=== PATIENT | female | born 1995 | race Asian ===

== ENCOUNTER 2021-11-03 05:30 | Inpatient (IN) ==
[2021-11-03] MEDS ORDERED: ONDANSETRON 4 MG/2 ML VIAL IV PRN (06:10)
[2021-11-03] MEDS ORDERED: LACTATED RINGERS 1,000 ML IV PRN (06:10)
[2021-11-03 06:50] LABS: Basophils # 0.1 10*3/uL (0.0-0.2); Basophils % 0.7 % (0.0-0.8); Eosinophils # 0.2 10*3/uL (0.0-0.87); Eosinophils % 1.8 % (0.00-10.9); Hematocrit 36.5 VOL% (35.7-47.0); Immature Granulocytes Absolute 0.11 #; Lymphocytes # 3.1 10*3/uL (1.4-4.0); Lymphocytes % 26.8 % (21.3-54.2); Mean Corpuscular HGB Conc 32.9 GM/DL (32-36); Mean Corpuscular Volume 97.6 FL (87-102); Mean Platelet Volume 12.1 FL (9.6-12.0); Monocytes % 9.4 % (1.7-12.7); Neutrophils % 60.3 % (38.7-73.9); Platelet Count 203 T/CUMM (130-400); Red Blood Count 3.74 MC/CUMM (3.8-5.5); Red Cell Distribution Width 12.4 % (9.3-17.3); White Blood Count 11.5 T/CUMM (4-12)
[2021-11-03] MEDS ORDERED: OXYTOCIN/LR 20 UNIT/1,000 ML BAG IV SCH (07:00)
[2021-11-03 07:15] LABS: Alanine Aminotransferase 14 U/L (13-56); Albumin 2.6 G/DL (3.4-5.0); Alkaline Phosphatase 120 U/L (45-117); Aspartate Amino Transferase 16 U/L (0-37); Bilirubin,Total < 0.39 MG/DL (0.20-1.00); Blood Urea Nitrogen 5 MG/DL (7-18); Calcium 8.3 MG/DL (8.5-10.1); Carbon Dioxide 22 MMOL/L (21-32); Estimated Glom Filtration Rate 150 ML/MIN; Glucose 80 MG/DL (74-106); Osmolality,Calculated 268.8 MOS/KG (273-304); Potassium 3.7 MMOL/L (3.5-5.1); Sodium 137 MMOL/L (136-145); Total Protein 6.2 G/DL (6.4-8.2)
[2021-11-03] MEDS ORDERED: LACTATED RINGERS 1,000 ML IV SCH (08:00)
[2021-11-03] MEDS ORDERED: BUTORPHANOL 2 MG/ML VIAL IV PRN (08:46)
[2021-11-03] MEDS ORDERED: MEPERIDINE 50 MG/1 ML VIAL IV PRN (08:46)
[2021-11-03 12:13] LABS: Bacteria,Urine Occasional /HPF (Few); Mucus,Urine Occasional /LPF (Occasional); RBC,Urine 1 /HPF (0-4)
[2021-11-03 12:14] LABS: Bilirubin,Urine Negative (Negative); Blood, Urine Negative (Negative); Glucose,Urine (UA) Negative (Negative); Ketones,Urine Negative (Negative); Nitrite,Urine Negative (Negative); Protein,Urine Negative; Urine Appearance Clear (Clear); Urine Color Yellow (Yellow); Urine Specific Gravity 1.015 (1.001-1.035); Urine Urobilinogen 0.2 EU/DL (<2.0); Urine pH 7.5 (4.5-8.0)
[2021-11-03] MEDS ORDERED: TRANEXAMIC ACID 1,000 MG/10 ML VIAL ONE (12:45)
[2021-11-03] MEDS ORDERED: SODIUM CHLORIDE 0.9% 0 ML IV ONE (12:45)
[2021-11-03] MEDS ORDERED: miSOPROStoL 200 MCG TABLET ONE (12:45)
[2021-11-03] MEDS ORDERED: METHYLERGONOVINE 0.2 MG/1 ML AMP ONE (12:46)
[2021-11-03] MEDS ORDERED: CARBOPROST TROMETHAMINE 250 MCG/ML AMP IM ONE (12:46)
[2021-11-03] MEDS ORDERED: CITRIC ACID/SODIUM CITRATE 30 ML UDCUP ONE (13:04)
[2021-11-03] MEDS ORDERED: ePHEDrine 50 MG/ML VIAL ONE (13:04)
[2021-11-03] MEDS ORDERED: fentaNYL 2 MCG/ROPIV 0.2% EPID 0 ML EPIDURAL ONE (13:05)
[2021-11-03] MEDS ORDERED: FAMOTIDINE 20 MG/2 ML VIAL IV ONE ×2 (13:06→13:40)
[2021-11-03] MEDS ORDERED: CITRIC ACID/SODIUM CITRATE 30 ML UDCUP PO ONE (13:40)
[2021-11-03 13:57] LABS: Cord Venous Blood HCO3 23.7 MMOL/L; Cord Venous Blood PCO2 41.1 MMHG; Cord Venous Blood PO2 35.5
[2021-11-03] MEDS ORDERED: BENZOCAINE 20%/MENTHOL 0.5% SPRAY 56 GM CAN TOP PRN (15:09)
[2021-11-03] MEDS ORDERED: OXYTOCIN/LR 20 UNIT/1,000 ML BAG IV ONE (15:09)
[2021-11-03] MEDS ORDERED: HYDROCORTISONE 2.5% RECTAL CREAM 30 GM TUBE TOP PRN (15:09)
[2021-11-03] MEDS ORDERED: oxyCODONE/ACETAMINOPHEN 5-325 MG TABLET PO PRN ×2 (15:09)
[2021-11-03] MEDS ORDERED: IBUPROFEN 800 MG TABLET PO PRN (15:09)
[2021-11-03] MEDS ORDERED: WITCH HAZEL PADS 100/JAR TOP PRN (15:09)
[2021-11-03] MEDS ORDERED: MEASLES/MUMPS/RUBELLA VACCINE 0.5 ML VIAL SUBCUT ONE (15:09)
[2021-11-03] MEDS ORDERED: RHO(D) IMMUNE GLOBULIN 300 MCG SYRINGE IM ONE (15:09)
[2021-11-03] MEDS ORDERED: DIPH/TET/ACEL PERT BOOSTER VACCINE 0.5 ML VIAL IM ONE (15:09)
[2021-11-03] MEDS ORDERED: BISACODYL 10 MG SUPP RECTAL PRN (15:09)
[2021-11-03] MEDS ORDERED: LANOLIN 50% CREAM 0.3 OZ TUBE TOP PRN (15:09)
[2021-11-03] MEDS ORDERED: ACETAMINOPHEN 325 MG TABLET PO PRN (15:09)
[2021-11-03] MEDS ORDERED: OXYTOCIN/D5LR 20 UNIT/1,000 ML PREMIX IV SCH (15:30)
[2021-11-03] MEDS: DOCUSATE SODIUM 100 MG CAPSULE PO SCH (21:14)
[2021-11-04 07:11] LABS: Basophils # 0.1 10*3/uL (0.0-0.2); Basophils % 0.5 % (0.0-0.8); Eosinophils # 0.3 10*3/uL (0.0-0.87); Eosinophils % 1.5 % (0.00-10.9); Hemoglobin 11.8 GM/DL (12.0-16.0); Immature Granulocytes Absolute 0.16 #; Lymphocytes # 3.3 10*3/uL (1.4-4.0); Lymphocytes % 19.8 % (21.3-54.2); Mean Corpuscular HGB Conc 32.8 GM/DL (32-36); Mean Corpuscular Volume 97.6 FL (87-102); Mean Platelet Volume 12.7 FL (9.6-12.0); Monocytes % 8.5 % (1.7-12.7); Neutrophils % 68.7 % (38.7-73.9); Platelet Count 169 T/CUMM (130-400); Red Blood Count 3.69 MC/CUMM (3.8-5.5); Red Cell Distribution Width 12.5 % (9.3-17.3); White Blood Count 16.8 T/CUMM (4-12)
[2021-11-04] MEDS: MULTIVITAMIN (PRENATAL) TABLET PO SCH (10:03)
[2021-11-04] MEDS: DOCUSATE SODIUM 100 MG CAPSULE PO SCH ×2 (10:03→20:15)
[2021-11-05] MEDS: MULTIVITAMIN (PRENATAL) TABLET PO SCH (08:44)
[2021-11-05] MEDS: DOCUSATE SODIUM 100 MG CAPSULE PO SCH (08:44)
[2021-11-05 09:51] VITALS: BP 106/72
[2021-11-05] MEDS ORDERED: MEASLES/MUMPS/RUBELLA VACCINE 0.5 ML VIAL SUBCUT ONE (11:20)
[2021-11-05] MEDS ORDERED: DIPH/TET/ACEL PERT BOOSTER VACCINE 0.5 ML VIAL IM ONE (11:20)
== END 2021-11-05 11:55 | disposition home or self-care (01) | DRG 807 ==
LOC: N.LD 05:30 → N.OB 16:54
PROVIDERS: ADMIT Obstetrics & Gynecology; ATTEND Obstetrics & Gynecology